=== PATIENT | female | born 1975 | race Caucasian/White ===

== ENCOUNTER 2021-02-09 12:09 | Emergency (ER) | payer OTHER ==
[~2021-02-09 12:09] MED LIST: TESSALON PERLE100 MG PO
[2021-02-09] MEDS ORDERED: PROCTOZONE-HC 230 GM TOP (13:25)
[2021-02-09] MEDS ORDERED: COLACE100 MG PO (13:25)
[2021-02-11] MEDS ORDERED: EFFEXOR XR150 MG PO (15:28)
== END 2021-02-09 17:22 | disposition home or self-care (01) ==
LOC: FER 12:09
DX: K64.4 Residual hemorrhoidal skin tags (principal); Z90.89 Acquired absence of other organs; Z88.0 Allergy status to penicillin; Z88.6 Allergy status to analgesic agent
CPT/HCPCS: 99283

== ENCOUNTER → 2021-02-16 | Day surgery (SDC) | payer OTHER ==
[~2021-02-16] VITALS: Ht 167.6 cm; Wt 70.3 kg
[~2021-02-16] MED LIST changes: +COLACE100 MG PO; +DIAZEPAM 5MG TAB5 MG PO; +EFFEXOR XR150 MG PO; +LIDOCAINE 2%30 ML TOP; +PERCOCET 5-3251 EACH PO; +PROCTOZONE-HC 230 GM TOP
== END | disposition home or self-care (01) ==
LOC: FAS 09:53
DX: K64.8 Other hemorrhoids (principal); K64.4 Residual hemorrhoidal skin tags; K59.00 Constipation, unspecified; Z98.51 Tubal ligation status; Z87.891 Personal history of nicotine dependence; Z88.0 Allergy status to penicillin; Z88.6 Allergy status to analgesic agent; Z79.899 Other long term (current) drug therapy
CPT/HCPCS: 84703; J0694; J1100; J1170; J2250; J2405; J2704; J3010; J7120